=== PATIENT | male | born 1955 | race Caucasian/White ===

== ENCOUNTER → 2016-11-07 | Outpatient (CLI) | payer OTHER ==
[~2016-11-07] MED LIST: INSU100I13 SQ; INSU100V10 IJ; METO25TA9 PO; SIMV40TA3 PO
--- NOTE | 2016-11-11 14:30 | ECHO ---
DATE OF SERVICE: 11/07/2016 INDICATIONS: A 61-year-old gentleman with acute myocardial infarction. Echocardiographic study was requested to evaluate systolic and diastolic function, any wall motion abnormality or structural heart disease. FINDINGS: 1. Study quality was fair. 2. Underlying rhythm was sinus rhythm. 3. LV function was preserved, EF around 55% with mild anterolateral hypokinesia. 4. LV dimensions were normal, end-diastolic dimension was 4.5 cm. 5. RV size and EF were normal. 6. Minimal LVH. No LVOT obstruction noted. 7. Both atria showed minimal dilatation. 8. Mitral valve showed [id number] mitral regurgitation, eccentric jet. The valve showed no adequate opening pattern. Doppler signal exam showed E to A reversal with grade 1 diastolic dysfunction. Mitral valve mean gradient by Doppler signal was 1.5 mmHg ruling out significant stenosis. 9. Aortic valve is minimally calcified. Aortic valve mean velocity by Doppler signal was 0.7 meter per second, aortic valve area was around 4 cm2 by VTI method, normal. 10. Mild tricuspid regurgitation. Pulmonary artery systolic pressure was between 25-30 mmHg. 11. No pericardial effusion noted. 12. Inferior vena cava was normal in size. IMPRESSION: 1. Preserved EF around 55% with mild anterolateral hypokinesia. 2. Mild concentric LVH with normal LV dimensions. 3. RV size and EF were normal. 4. Both atria showed mild dilatation. 5. [id number] mitral regurgitation, no stenosis. 6. Grade 1 diastolic dysfunction. 7. Aortic calcification without regurgitation on stenosis. 8. Normal pulmonary artery systolic pressure. 9. No pericardial effusion. Josef Hardy MD DR: [email or web address]/jeremiah JOB# [id number]
== END | disposition home or self-care (01) ==
LOC: RT 09:04
PROVIDERS: ATTEND Nurse Practitioner Family
DX: I21.3 ST elevation (STEMI) myocardial infarction of unspecified site (principal); I08.1 Rheumatic disorders of both mitral and tricuspid valves
CPT/HCPCS: 93307